=== PATIENT | female | born 1935 | race Caucasian/White ===

== ENCOUNTER 2017-10-02 09:26 | Inpatient (IN) | payer OTHER ==
[2017-10-02] MEDS ORDERED: predniSONE 20 MG TAB PO ONE (09:59)
[2017-10-02] MEDS ORDERED: ASPIRIN 81 MG CHEWABLE TAB PO ONE (09:59)
--- NOTE | 2017-10-02 10:04 | CPEKG ---
Heart Rate: 124 RR Interval: 484 P-R Interval: 164 QRSD Interval: 100 QT Interval: 324 QTC Interval: 466 P [place]: 74 QRS [place]: -43 T Wave [place]: 77 EKG Severity - ABNORMAL ECG - EKG Impression: SINUS TACHYCARDIA EKG Impression: LEFT ANTERIOR FASCICULAR BLOCK Electronically Signed By: Carmelo Alan 04-Oct-2017 08:54:15
[2017-10-02 10:07] LABS: PLATELET COUNT 228 10^3/uL (150-400)
[2017-10-02] MEDS ORDERED: IPRATROPIUM/ALBUTEROL 3 ML DEYVIAL IH ONE ×2 (10:08→12:22)
[2017-10-02] MEDS ORDERED: NS 1,000 ML IV ONE (10:35)
--- NOTE | 2017-10-02 10:39 | EDPHY ---
H & P Stated Complaint: SOB and shaking 2 days Time Seen by Provider: 10/02/17 09:35 HPI/ROS: CHIEF COMPLAINT: Short of breath, heart putting and shaky History by patient HISTORY OF PRESENT ILLNESS: 82-year-old woman with a history of hypertension and oxygen-dependent COPD presents complaining of her blood pressure running high at home and feeling shaky and some worsening shortness of breath. Patient states that a few weeks ago she quit taking her blood pressure medications for unclear reasons and then over the past few days she has been feeling unwell as if she is having a hard time breathing as well as feeling her heart pounding from time to time and feeling shaky all over. About 2 days ago she began taking her blood pressure medications again however when she took her blood pressure this morning to noticed it was high at around 190/120 despite the fact that she had been back on her medicine for 2 days. She is not currently on prednisone her aspirin. She does have a prior history of unprovoked DVT for which she took warfarin for 4 months but then office now 1st 2 years. She has had no recent leg pain or swelling. She normally uses 4 L of oxygen at home and states that she can walk around her house and get up and down stairs without too much difficulty. She denies any recent chest pain. She feels that at this moment her breathing is at baseline. She denies any fever, chills, change in cough, nausea or vomiting. 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 Head: normocephalic, atraumatic Eyes: Pupils equal and round, reactive to light, no pallor or injection. Extraocular movements intact Mouth: Mucous membranes moist. Respiratory: Increased effort and tachypnea, lungs with poor air movement throughout and scattered rhonchi. No chest wall tenderness Cardiovascular: Regular rate and rhythm, distant. no murmurs, gallops or rubs appreciated Gastrointestinal: Abdomen is soft and nontender, no masses, bowel sounds normal. Back: No CVA tenderness, no bony tenderness Neurological: Awake, alert and oriented x 3, no pronator drift, normal gait, no pronator drift Skin: Warm and dry, no rashes. Musculoskeletal: No deformities or tenderness. Full range of motion Extremities: no edema, no tenderness, DP2+ bilat Psychiatric: Patient has normal affect, there is no agitation. Constitutional: Initial Vital Signs Temperature (C) 37.3 C 10/02/17 09:34 Heart Rate 124 H 10/02/17 09:34 Respiratory Rate 32 H 10/02/17 09:34 Blood Pressure 180/76 H 10/02/17 09:34 O2 Sat (%) 95 10/02/17 09:34 O2 Delivery Mode Nasal Cannula O2 (L/minute) 4 Allergies/Adverse Reactions: No Known Allergies Allergy (Verified 10/02/17 09:43) Home Medications: Medication Instructions Recorded Amlodipine Besylate 10/02/17 Flovent Hfa 10/02/17 Ipratropium/Albuterol 10/02/17 Lisinopril/Hydrochlorothiazide 10/02/17 Proair Hfa 10/02/17 predniSONE 20 mg PO DAILY #5 tablet 10/02/17 Medical Decision Making - Diagnostics EKG Interpretation: Sinus tachycardia rate of 124 with LAFB, no ST segment elevation. Impression: Abnormal EKG Imaging Results: Imaging Impressions Chest X-Ray 10/02/17 10:00 Impression: 1. COPD/chronic bronchitis. 2. Suspect early left lower lobe pneumonia. Chest/Thorax CTA 10/02/17 10:35 Impression: 1. No pulmonary embolism or acute intrathoracic pathology. 2. Stable postoperative changes and atherosclerosis of the thoracic aorta. 3. Persistent pulmonary arterial dilatation suggestive of chronic pulmonary hypertension. 4. Diffuse centrilobular emphysema. 5. Stable left lower lobe pleural parenchymal scarring. 6. Interval increase size of subcutaneous nodule within the right posterior back. Correlate with physical examination. Consider further evaluation by ultrasound if clinically indicated. Findings and recommendations communicated to Qiana Damian MD via [facility] [place] at 1203 hour, 10/02/2017. Imaging: I viewed and interpreted images myself ED Course/Re-evaluation: 82-year-old woman with history of COPD and hypertension, prior DVT presents with palpitations, shortness of breath and tachycardia. I was concerned about COPD exacerbation, pulmonary embolism, cardiac ischemia and infection. EKG showed no evidence of acute ischemia. There is no evidence of acute arrhythmia although the patient's heart rate was variable between the 90s and 120s on the coning machine operator. Chest x-ray showed no evidence of acute pneumonia or pneumothorax. Labs were notable for no evidence of anemia or elevated white blood cell count. Patient did have an elevated creatinine at 1.7 which is up from 1.42 years ago. She 1st troponin was negative. D-dimer was elevated. BNP was slightly elevated but not in the range consistent with congestive heart failure. Patient was given an aspirin in the ED. Patient was given a DuoNeb and a dose of oral prednisone for presumed COPD exacerbation. Given the negative chest x-ray but elevated D-dimer and prior history of DVT chest CT to evaluate for pulmonary embolism was ordered. Because the patient's elevated creatinine she was given IV fluids before and after the CT dye. I discussed this with the radiologist and she will get a low-dose of dye. I discussed this with the patient so that she understands there is a small risk of worsening renal function after the CT dye but that at this point the risks outweigh the benefits of diagnosis. 12:[address] scan revealed no evidence of pulmonary embolism or pneumonia. On re-evaluation the patient was feeling slightly better no longer complaining heart pounding but still continued to complain of feeling shaky. She continued to deny chest pain or shortness of breath worse than her baseline. On re- evaluation the patient continued to have increased work of breathing, tachypnea and have scattered rhonchi and poor air movement throughout. Given the patient' s respiratory status I recommended admission for ongoing observation and treatment. Patient was very adamant that she wanted to go home and that she feels like she is at her baseline except for the shakiness. Because I could not exclude cardiac cause of her symptoms we will repeat the troponin, however the patient is quite adamant that she wants to go home if the troponin remained negative. 1:21 p.m. the patient's repeat troponin is also negative. Procalcitonin is in the low risk for infection range and the patient herself has no clear symptoms of infection. At this point I think it is reasonable to treat her with a short course of steroids, and for a COPD exacerbation. The patient initially was still adamant that she wanted to go home however her notes that he thinks her breathing is worse than usual, that she has not been able to lay down because of her breathing for the past couple nights and on re-evaluation she remains tachypneic. Her oxygen saturation is 92% on 4 L and she says it is usually 94 95% on 4 L. She continue remained tachycardic with heart rate in the 90s, therefore between myself and her we convinced her that she should be admitted for further evaluation and treatment. I discussed the patient with the hospitalist labor relations analyst, Ela Hussein, the patient be admitted to Dr. Yahir Malave. she requested Respiratory pathogen PCR which was ordered.. - Data Points Laboratory Results: Laboratory Results 10/02/17 09:45 10/02/17 09:45 10/02/17 10/02/17 10/02/17 12:45 09:45 09:45 WBC RBC Hgb Hct MCV MCH MCHC RDW Plt Count MPV Neut % (Auto) Lymph % (Auto) [place] % (Auto) Eos % (Auto) Baso % (Auto) Nucleat RBC Rel Count Absolute Neuts (auto) Absolute Lymphs (auto) Absolute Monos (auto) Absolute Eos (auto) Absolute Basos (auto) Absolute Nucleated RBC Immature Gran % Immature Gran # D-Dimer 5.01 ug/mLFEU H ug/mLFEU (0.00-0.50) Sodium Potassium Chloride Carbon Dioxide Anion Gap BUN Creatinine Estimated GFR Glucose Calcium Troponin I < 0.012 ng/mL ng/mL (0.000-0.034) NT-Pro-B Natriuret Pep Procalcitonin 0.11 ng/mL H ng/mL (0.02-0.10) 10/02/17 10/02/17 09:45 09:45 WBC 9.07 10^3/uL 10^3/uL (3.80-9.50) RBC 4.06 10^6/uL L 10^6/uL (4.18-5.33) Hgb 12.3 g/dL L g/dL (12.6-16.3) Hct 38.9 % % (38.0-47.0) MCV 95.8 fL fL (81.5-99.8) MCH 30.3 pg pg (27.9-34.1) MCHC 31.6 g/dL L g/dL (32.4-36.7) RDW 12.8 % % (11.5-15.2) Plt Count 228 10^3/uL 10^3/uL (150-400) MPV 10.2 fL fL (8.7-11.7) Neut % (Auto) 76.3 % H % (39.3-74.2) Lymph % (Auto) 12.8 % L % (15.0-45.0) [place] % (Auto) 8.8 % % (4.5-13.0) Eos % (Auto) 1.0 % % (0.6-7.6) Baso % (Auto) 0.8 % % (0.3-1.7) Nucleat RBC Rel Count 0.0 % % (0.0-0.2) Absolute Neuts (auto) 6.92 10^3/uL H 10^3/uL (1.70-6.50) Absolute Lymphs (auto) 1.16 10^3/uL 10^3/uL (1.00-3.00) Absolute Monos (auto) 0.80 10^3/uL 10^3/uL (0.30-0.80) Absolute Eos (auto) 0.09 10^3/uL 10^3/uL (0.03-0.40) Absolute Basos (auto) 0.07 10^3/uL 10^3/uL (0.02-0.10) Absolute Nucleated RBC 0.00 10^3/uL 10^3/uL (0-0.01) Immature Gran % 0.3 % % (0.0-1.1) Immature Gran # 0.03 10^3/uL 10^3/uL (0.00-0.10) D-Dimer Sodium 144 mEq/L mEq/L (135-145) Potassium 4.9 mEq/L mEq/L (3.5-5.2) Chloride 107 mEq/L mEq/L (97-110) Carbon Dioxide 26 mEq/l mEq/l (22-31) Anion Gap 11 mEq/L mEq/L (8-16) BUN 36 mg/dL H mg/dL (7-23) Creatinine 1.7 mg/dL H mg/dL (0.6-1.0) Estimated GFR 29 Glucose 127 mg/dL H mg/dL (70-100) Calcium 9.8 mg/dL mg/dL (8.5-10.4) Troponin I < 0.012 ng/mL ng/mL (0.000-0.034) NT-Pro-B Natriuret Pep 473 pg/mL H pg/mL (0-450) Procalcitonin Medications Given: Discontinued Medications Albuterol/Ipratropium (Duoneb) 3 ml IH EDNOW ONE Stop: 10/02/17 10:09 Last Admin: 10/02/17 10:35 Dose: 3 ml Albuterol/Ipratropium (Duoneb) 3 ml IH EDNOW ONE Stop: 10/02/17 12:23 Last Admin: 10/02/17 12:24 Dose: 3 ml Aspirin (Aspirin) 324 mg PO EDNOW ONE Stop: 10/02/17 10:00 Last Admin: 10/02/17 10:35 Dose: 324 mg Sodium Chloride (Ns) 1,000 mls @ 0 mls/hr IV EDNOW ONE; Wide Open PRN Reason: Protocol Stop: 10/02/17 10:36 Last Admin: 10/02/17 10:39 Dose: 1,000 mls Prednisone (Prednisone) 40 mg PO EDNOW ONE Stop: 10/02/17 10:00 Last Admin: 10/02/17 10:35 Dose: 40 mg Departure - Departure Disposition: [facility] Acute Clinical Impression: Chronic obstructive pulmonary disease with acute exacerbation, Elevated blood pressure reading, Elevated serum creatinine Condition: Fair
[2017-10-02] MEDS ORDERED: IOPAMIDOL (ISOVUE 370) 100 ML BTL IV ONE (11:21)
[2017-10-02] MEDS ORDERED: ONDANSETRON DISINTEGRATING 4 MG TAB PO PRN (16:34)
[2017-10-02] MEDS ORDERED: ONDANSETRON 4 MG/2 ML VIAL IVP PRN (16:34)
[2017-10-02] MEDS ORDERED: ACETAMINOPHEN 325 MG TAB PO PRN (16:34)
[2017-10-02] MEDS ORDERED: NS 1,000 ML IV SCH (16:45)
--- NOTE | 2017-10-02 17:26 | GHP ---
[f rep st] HISTORY AND PHYSICAL DATE OF ADMISSION: 10/02/2017 HISTORY OF PRESENT ILLNESS: The patient is an 82-year-old female with a history of oxygen-dependent COPD and hypertension, who discontinued her blood pressure medicines a few weeks ago, it sounds like she was just tired of taking pills. Blood pressure had been running in the 190/120. Over the last c ouple days she has felt shaky. She has not had chest pain. Her shortness of breath has been perhaps a bit worse. Her oral intake has been about the same. She has not had fever, chills, cough, sputum . She has a runny nose, which she attributes to allergies. She has no myalgias. No other significa nt infectious symptoms. No nausea, vomiting, diarrhea. REVIEW OF SYSTEMS: Complete 10-point review of systems conducted negative except as noted in the HPI . PAST MEDICAL HISTORY: 1. Hypertension. 2. Oxygen-dependent COPD. 3. Chronic kidney disease, uncertain baseline creatinine suspected to be about 1.4. ALLERGIES: No known drug allergies. HOME MEDICATIONS: Amlodipine, Flovent, Combivent, lisinopril/hydrochloride, and ProAir. SOCIAL HISTORY: No tobacco in about 10 years. Lives in [place]. FAMILY HISTORY: Parents . PHYSICAL EXAM: VITAL SIGNS: Temp 37, blood pressure 169/67, as high as 200/81, pulse was 94 to brie fly 128, 98 here, breathing at 26-28 times a minute, 95% on 4 L. GENERAL: No acute distress. HEENT : Sclerae anicteric. Oropharynx clear. Mucous membranes are moist. NECK: Supple, without lymphad enopathy or JVD. LUNGS: Show poor air movement, without wheeze. Exam is consistent with severe IT FIELD TECHNICIAN D. HEART: S1, S2. Borderline tachycardic. ABDOMEN: Soft, nontender, nondistended. LOWER EXTREMI TIES: No edema, calves are nontender. SKIN: Without rash. NEUROLOGIC: Nonfocal. LABORATORY: Sodium 144, potassium 4.9, chloride 107, bicarb 26, BUN 36, creatinine 1.7, previous david ues include 1.4 in 2014, and then in 2014 and before numbers of less than 1. Troponin is less than 0 .012. BNP is 473. Procalcitonin is 0.11. D-dimer is 5. White count 9, hematocrit 38.9, platelets are 228,000. EKG interpreted by me shows sinus tach at 124, with left axis deviation, right atrial e nlargement, peak T-waves, but no ST or T-wave changes. Chest x-ray interpreted by me shows suspected early left lower lobe pneumonia, COPD and chronic bronchitis. CTA of the chest shows no PE, enlarge d pulmonary arteries, diffuse emphysema, stable left lower lobe pleural parenchymal scarring. I disc ussed the case with Dr. Qiana Damian. ASSESSMENT/PLAN: 82-year-old female presents with hypertension and shakiness. 1. Shakiness. Uncertain what to make of this. Her workup was largely negative. We will treat her hypertension and follow. 2. Hypertension. I will give her 5 amlodipine now, increase the dose to 10 and continue her lisinop ril/hydrochlorothiazide in the morning. 3. Question upper respiratory infection. The patient has no symptoms attributable to it and a low p rocalcitonin. We will not follow. 4. Elevated creatinine. It is not clear if this represents a new baseline versus perhaps a bit of p rerenal kidney injury. We will give her a liter of IV fluids and follow. 5. Elevated BNP. This is consistent with pulmonary hypertension. We will follow. No further andria p. 6. Chronic obstructive pulmonary disease. The patient takes Flovent and albuterol. She takes Combi vent. I will try tiotropium in the morning for her. DISPOSITION: Observation status. /[id number]/MODL
[2017-10-02] MEDS ORDERED: amLODIPine BESYLATE 5 MG TAB PO ONE (18:00)
[2017-10-02] MEDS: ALBUTEROL 60 PUFFS/8 GM MDI IH PRN (20:58)
[2017-10-02] MEDS: FLUTICASONE HFA 110 MCG MDI IH SCH (20:59)
[2017-10-02] MEDS ORDERED: FLUTICASONE/SALMETER 250/50MCG DISKUS IH SCH (21:00)
[2017-10-03] MEDS ORDERED: ALBUTEROL 3 ML DEYVIAL IH PRN (03:44)
[2017-10-03 05:40] LABS: PLATELET COUNT 186 10^3/uL (150-400)
[2017-10-03] MEDS: LISINOPRIL 40 MG TAB PO SCH ×2 (08:39→11:06)
[2017-10-03] MEDS: TRIAMTERENE/HCTZ 37.5/25 1 EACH TAB PO SCH (08:40)
[2017-10-03] MEDS: ENOXAPARIN 30 MG/0.3 ML SYR SC SCH (08:42)
--- NOTE | 2017-10-03 08:46 | HOSPPROG ---
Hospitalist Progress Note Assessment/Plan: Patient is an 82-year-old female who has a history of oxygen-dependent COPD and hypertension. She is Dr. Blood pressure medications a few weeks ago. Today is my 1st encounter with the patient. Chart reviewed. * Uncontrolled hypertension -better with resuming her home medications and in addition amlodipine *shakiness -still quite 'shakey' this morning * hyperkalemia -recheck potassium now -hold marlena until we recheck * renal insufficiency -creat 2 years ago was elevated * elevated D-dimer -no PE noted on CTA * pulmonary artery dilation suggestive of pulmonary hypertension - followup with pulmonology in the outpatient setting * query respiratory symptoms -PCR is negative and procalcitonin is low * COPD -see Dr Doll in the OP setting . He knows she is here and came by to say "artis ". -she has very poor air exchange (likely her baseline) *anemia -had a drop in hgb/hct -could be dilutional *Plan: patient is very short of breath and quite shakey this morning. She will require another midnight stay to evaluate and make sure she is stable to go home. Subjective: Karina Henry is anxious to go home, but still feels very shakey and not quite herself. Objective: Vital Signs Temp Pulse Resp BP Pulse Ox 37 C 90 18 164/61 H 93 10/03/17 08:00 10/03/17 08:00 10/03/17 08:00 10/03/17 08:00 10/03/17 08:00 Microbiology 10/02/17 13:57 Respiratory Panel (PCR) - Final Nasal, Sinus - [place] Viral Transport No Organism Detected Laboratory Results 10/03/17 04:27 10/03/17 04:27 10/02/17 10/03/17 10/04/17 05:59 05:59 05:59 Intake Total 2540 Balance 2540 - Physical Exam Constitutional: not in pain, chronically ill appearing Eyes: PERRL Ears, Nose, Mouth, Throat: hearing normal Cardiovascular: regular rate and rhythym Respiratory: no respiratory distress, reduced air movement (bibasilar, has a hard time with exhaling) Gastrointestinal: normoactive bowel sounds Skin: warm Musculoskeletal: generalized weakness Neurologic: AAOx3 Psychiatric: interacting appropriately ICD10 Worksheet Patient Problems: Problems Problem Status Onset Chronic obstructive pulmonary disease with acute exacerbation Acute Elevated blood pressure reading Acute Elevated serum creatinine Acute DVT (deep venous thrombosis) Acute
[2017-10-03] MEDS ORDERED: LISINOPRIL/HCTZ 20/12.5MG 1 EA TAB PO SCH (09:00)
[2017-10-03] MEDS: FLUTICASONE HFA 110 MCG MDI IH SCH ×2 (09:50→21:59)
[2017-10-03] MEDS: TIOTROPIUM INHALER 18 MCG/DOSE 5 DOSE/MDI IH SCH (09:51)
[2017-10-03] MEDS: ALBUTEROL 60 PUFFS/8 GM MDI IH PRN ×3 (09:52→22:00)
[2017-10-03] MEDS: IPRATROPIUM/ALBUTEROL 3 ML DEYVIAL IH SCH ×2 (10:28→18:10)
--- NOTE | 2017-10-03 11:50 | PDMN ---
Medical Necessity Medical necessity: Patient transitioned to inpatient status per IP LITIGATION ASSOCIATE note and CMS guidelines: ongoing hypertension, improved after restarting home meds and adding amlodipine, hyperkalemia, shakiness, renal insufficiency, COPD, anemia; LOS will be > 2 midnights for ongoing dyspnea on exertion and continued monitoring of B/P with med adjustment, work with PT/OT.
--- NOTE | 2017-10-03 14:00 | ASMTCASEMG ---
Living Arrangements What is your living Answers: With Spouse arrangement? Who do you live with? Type Of Residence What kind of residence do Answers: House you live in? Discharge Plan Comments Coordination Status Comments Notes: Pt is a 82 y/o female admitted for COPD exacerbation, acute renal failure and hypertension. CM met w/ pt for dispo planning. PT is recommending home independent. OT is recommending HC. Pt does not think she will need any HC. Pt reports that her will be able to help her out. CM available for changes. Plan: Independent Date Signed: 10/03/2017 01:59 PM Electronically Signed By:ALBA Bear
[2017-10-03] MEDS ORDERED: hydrALAZINE 10 MG TAB PO PRN (16:13)
[2017-10-03] MEDS ORDERED: amLODIPine BESYLATE 5 MG TAB PO ONE (16:32)
[2017-10-04] MEDS: IPRATROPIUM/ALBUTEROL 3 ML DEYVIAL IH SCH ×4 (02:48→15:31)
[2017-10-04 05:56] LABS: PLATELET COUNT 190 10^3/uL (150-400)
[2017-10-04] MEDS: LISINOPRIL 40 MG TAB PO SCH (07:45)
[2017-10-04] MEDS: TRIAMTERENE/HCTZ 37.5/25 1 EACH TAB PO SCH (07:46)
[2017-10-04] MEDS: ENOXAPARIN 30 MG/0.3 ML SYR SC SCH (07:47)
[2017-10-04] MEDS: TIOTROPIUM INHALER 18 MCG/DOSE 5 DOSE/MDI IH SCH (09:50)
[2017-10-04] MEDS: FLUTICASONE HFA 110 MCG MDI IH SCH (09:54)
--- NOTE | 2017-10-04 10:22 | HOSPPROG ---
Hospitalist Progress Note Assessment/Plan: Patient is an 82-year-old female who has a history of oxygen-dependent COPD and hypertension. She is Dr. Blood pressure medications a few weeks ago. Today is my 1st encounter with the patient. Chart reviewed. * Uncontrolled hypertension -better with resuming her home medications and in addition increasing amlodipine dose *shakiness -better this morning -suspect her COPD is affecting this * hyperkalemia -resolved, likely an insufficient lab draw * renal insufficiency -creat 2 years ago was elevated * elevated D-dimer -no PE noted on CTA * pulmonary artery dilation suggestive of pulmonary hypertension - followup with pulmonology in the outpatient setting * query respiratory symptoms -PCR is negative and procalcitonin is low * COPD -see Dr Doll in the OP setting . He knows she is here. To f/u w him in the OP setting -she has very poor air exchange (likely her baseline) *anemia -overall stable, further f/u w her PCP *Plan: patient is very short of breath, but suspect this is her baseline, If stable after lunch will dc home Subjective: Karina Henry is feeling 'ok', wants to go home. Objective: Vital Signs Temp Pulse Resp BP Pulse Ox 36.7 C 100 18 169/85 H 95 10/04/17 07:32 10/04/17 07:32 10/04/17 07:32 10/04/17 07:32 10/04/17 07:32 Laboratory Results 10/04/17 05:47 10/04/17 05:47 10/03/17 10/04/17 10/05/17 05:59 05:59 05:59 Intake Total 100 Balance 100 - Physical Exam Constitutional: chronically ill appearing Eyes: PERRL Ears, Nose, Mouth, Throat: hearing normal Cardiovascular: regular rate and rhythym, tachycardia Respiratory: reduced air movement (mid lobes down, has poor expiratory effort) Skin: warm Musculoskeletal: generalized weakness Neurologic: AAOx3 Psychiatric: interacting appropriately ICD10 Worksheet Patient Problems: Problems Problem Status Onset DVT (deep venous thrombosis) Acute Chronic obstructive pulmonary disease with acute exacerbation Acute Elevated blood pressure reading Acute Elevated serum creatinine Acute
[2017-10-04 12:01] VITALS: RESP 18
--- NOTE | 2017-10-04 12:33 | PDIAF ---
- Diagnosis Diagnosis: uncontrolled htn, copd Code Status: Full Code - Medication Management Discharge Medications: Medications to Continue on Transfer Albuterol [Proventil Inhaler HFA (*)] 2 puffs IH Q4H PRN 10/02/17 [Last Taken ] Fluticasone Hfa 110 Mcg [Flovent 110 MCG Hfa MDI (*)] 2 puffs IH BID 10/02/17 [ Last Taken 10/02/17] Lisinopril [Zestril 40 mg (*)] 40 mg PO DAILY 10/02/17 [Last Taken 10/02/17] Triamterene/Hctz 37.5/25 [Maxzide-25 (*)] 1 tab PO DAILY 10/02/17 [Last Taken ] Tiotropium Inhaler [Spiriva Handihaler] 18 mcg IH DAILY #1 mdi 10/04/17 [Last Taken Unknown] amLODIPine BESYLATE [Amlodipine Besylate] 10 mg PO DAILY #60 tablet 10/04/17 [ Last Taken Unknown] Discharge Medications: Refer to the Discharge Home Medication list for PRN reason. - Orders Services needed: Home Care, Registered Nurse Home Care Face to Face: I certify that this patient was under my care and that I had the required [id number] encounter meeting the encounter requirements on the discharge day. My findings support the fact that the patient is homebound as defined in Home Care Face to Face Continued: CMS Chapter 7 Medicare Benefits Manual 30.1.1 , The condition of the patient is such that there exists a normal inability to leave home and consequently, leaving home would require a considerable and taxing effort. Isolation Type: None Diet Recommendation: no restrictions on diet Diet Texture: Regular Texture Diet Additional: please check blood pressure daily. Evaluate patient's ability to take her medications. May need a medication box. - Follow Up Care Current Providers and Referrals: Kristin Latham MD [Primary Care Provider] - As per Instructions Celio Doll MD [Medical Doctor] -
--- NOTE | 2017-10-04 13:08 | GDS ---
[f rep st] DISCHARGE SUMMARY DISCHARGE DIAGNOSIS: 1. Uncontrolled hypertension. 2. Shakiness. 3. Hyperkalemia. 4. Renal insufficiency. 5. Elevated D-dimer. 6. Pulmonary artery dilation suggestive of pulmonary hypertension. 7. Query respiratory symptoms. 8. Chronic obstructive pulmonary disease. 9. Anemia. HISTORY: Briefly, the patient is an 82-year-old female who has oxygen- dependent COPD and hypertension. She stopped her blood pressure medications a few weeks ago and started feeling shaky. She was admitted for further evaluation. HOSPITAL COURSE: 1. Uncontrolled hypertension. This is better with resuming her home medications. In addition, her amlodipine dose has been increased from 5 mg to 10 mg. 2. Shakiness. This is better. I suspect her COPD and inhalers are affecting her. 3. Hyperkalemia. I suspect this was due to a lab draw error. This has since resolved. 4. Renal insufficiency, overall stable. 5. Elevated D-dimer. No PE noted on CT. 6. Pulmonary artery dilation. This is suggestive of pulmonary hypertension. Reviewed this finding with Dr. Doll. She will follow up with him in the outpatient setting. 7. Query respiratory symptoms. PCR is negative. Procalcitonin is low. She was not treated with antibiotics. 8. COPD. A steroid inhaler has been added to her home medications. Will have her follow up with Dr. Doll in regard to this. 9. Anemia. Further follow up with her primary care provider. DISCHARGE CONDITION: Stable. Blood pressure is 164/76, heart rate is 99, respiratory rate is 18, O2 saturations on 4 L are 91% to 94%. Temperature is 36.8 Celsius. MEDICATIONS AT DISCHARGE: Please see the EMR. DISCHARGE INSTRUCTIONS: 1. To follow up with her primary care provider to get follow up with her anemia. 2. Her Norvasc dose has been doubled. 3. She has been started on new medication, Spiriva, to use this daily in the morning. 4. Follow up with Dr. Celio Doll. 5. Have home care nursing to check on her to make sure she is taking her blood pressure medications and to follow this. Also, to review with her how to take the Spiriva. TIME SPENT: Greater than 30 minutes discharging and coordinating the patient's care. /[id number]/MODL MTDD
[2017-10-04 15:22] VITALS: BP 159/76; PULSE 105; TEMP 98.4; O2SAT 95
[2017-10-04] MEDS: ALBUTEROL 60 PUFFS/8 GM MDI IH PRN (15:30)
--- NOTE | 2017-10-04 15:47 | ASMTLACE ---
LACE Length of stay for Answers: 1 day current admission Acuity / Level of Answers: Yes Care: Did the patient have an inpatient admission? Comorbidities - select Answers: Chronic pulmonary disease all that apply Peripheral vascular disease Other Notes: CKD, HTN, DVT # of Emergency department Answers: 1-2 visits in the last 6 months Score: 9 Date Signed: 10/04/2017 03:46 PM Electronically Signed By:Sidra Portillo RN
--- NOTE | 2017-10-04 15:56 | ASMTCMCOM ---
CM Note CM Note Notes: Colleague spoke w/pt re dc with homecare, pt declined. Will dc home, when medically stable. CM available for any changes. DC Plan: Independent Date Signed: 10/04/2017 03:55 PM Electronically Signed By:Sidra Portillo RN
== END 2017-10-04 17:03 | disposition home or self-care (01) | DRG 305 ==
LOC: CED 09:26 → CEDHOLD 13:36 → F3E 15:47 → OBSVTOIN 10-03 09:55
PROVIDERS: ADMIT Internal Medicine; ATTEND Internal Medicine
DX: I10 Essential (primary) hypertension (principal); T46.5X6A Underdosing of other antihypertensive drugs, initial encounter; G25.70 Drug induced movement disorder, unspecified; E87.5 Hyperkalemia; N28.9 Disorder of kidney and ureter, unspecified; I27.20 Pulmonary hypertension, unspecified; J44.9 Chronic obstructive pulmonary disease, unspecified; D64.9 Anemia, unspecified; Z99.81 Dependence on supplemental oxygen
CPT/HCPCS: 71046-PO; 71275-PO; 80048-PO; 83880-PO; 84484-PO; 85025-PO; 85378-PO; 97116-GP; 97161-GP; 97165-GO; 97535-GO; G0378; G8978-GP-CI; G8979-GP-CI; G8987-GO-CJ; G8988-GO-CI; J1650; J7512; Q9967

== ENCOUNTER 2017-11-20 16:31 | Emergency (ER) | payer OTHER ==
[2017-11-20] MEDS ORDERED: NS 500 ML IV ONE (16:39)
--- NOTE | 2017-11-20 17:05 | CPEKG ---
Heart Rate: 74 RR Interval: 811 P-R Interval: 168 QRSD Interval: 100 QT Interval: 412 QTC Interval: [address] City: [address] City: -[address] City: 47 EKG Severity - ABNORMAL ECG - EKG Impression: SINUS RHYTHM EKG Impression: RIGHT ATRIAL ABNORMALITY EKG Impression: LEFT AXIS DEVIATION Electronically Signed By: Chase Ford 20-Nov-2017 18:53:29
--- NOTE | 2017-11-20 17:16 | EDPHY ---
H & P Stated Complaint: PT. states sent by [facility] d/t Potassium to high, denies s/s' s Time Seen by Provider: 11/20/17 16:36 HPI/ROS: This patient reports receiving a phone call regarding her outpatient lab draw results today that revealed hyperkalemia. She is instructed to come the emergency department for evaluation and treatment. The patient denies any acute symptoms. Review of her history reveals renal insufficiency with elevated creatinine and elevated potassium in the past of 5.8. Today's outpatient blood draw is located in the computer-5.9. Her earlier episode of hyperkalemia is felt to be a spurious test result as repeat lab test revealed a normal potassium though the repeat was a day or 2 later. ROS: Constitutional: No significant fever, malaise or fevers. HEENT: No complaints Neuro: No confusion. No headache. No tremor. No focal weakness. No muscle spasms. Pulmonary: No cough shortness of breath Cardiovascular: No heart palpitations or lightheadedness. GI: No nausea vomiting or diarrhea. No abdominal pain. : No complaints new line integumentary: No rash 10 point ROS is otherwise negative. 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 Eyes: Pupils equal and round no pallor or injection. ENT, Mouth: Mucous membranes moist. Respiratory: There are no retractions, lungs are clear to auscultation. Cardiovascular: Regular rate and rhythm. Gastrointestinal: Abdomen is soft and nontender, no masses, bowel sounds normal. Neurological: GCS 15 with no focal deficits. Skin: Warm and dry, no rashes. Musculoskeletal: Neck is supple nontender. Extremities are symmetrical, full range of motion. Psychiatric: Mood and affect are normal DIFFERENTIAL DIAGNOSIS: After history and physical exam differential diagnosis was considered for her became anemia, renal insufficiency, renal failure, spurious lab results from hemo lysis, dehydration Constitutional: Initial Vital Signs Temperature (C) 37.2 C 11/20/17 16:45 Heart Rate 78 11/20/17 16:45 Respiratory Rate 24 H 11/20/17 16:45 Blood Pressure 182/86 H 11/20/17 16:45 O2 Sat (%) 95 11/20/17 16:45 O2 Delivery Mode Nasal Cannula O2 (L/minute) 4 Allergies/Adverse Reactions: No Known Allergies Allergy (Verified 11/20/17 16:43) Home Medications: Medication Instructions Recorded Albuterol [Proventil Inhaler HFA 2 puffs IH Q4H PRN 10/02/17 (*)] Fluticasone Hfa 110 Mcg [Flovent 2 puffs IH BID 10/02/17 110 MCG Hfa MDI (*)] Lisinopril [Zestril 40 mg (*)] 40 mg PO DAILY 10/02/17 Triamterene/Hctz 37.5/25 1 tab PO DAILY 10/02/17 [Maxzide-25 (*)] Tiotropium Inhaler [Spiriva 18 mcg IH DAILY #1 mdi 10/04/17 Handihaler] amLODIPine BESYLATE [Amlodipine 10 mg PO DAILY #60 tablet 10/04/17 Besylate] Furosemide [Lasix 20 MG (*)] 20 mg PO DAILY #14 tab 11/20/17 Medical Decision Making - Diagnostics EKG Interpretation: 12 lead EKG performed at 5:03 p.m. Indication evaluate for hyperkalemia Sinus rhythm at 74 Intervals: Normal throughout [place]: P of 85, QRS of -35, T of [address] segments: Normal throughout [id number] peaked anterolaterally but similar to an EKG dated 10/02/2017. ED Course/Re-evaluation: Patient was given a 500 cc bolus. She is comfortable without any acute symptoms. Review of her EKG revealed mild peak T-waves without other significant abnormalities. Review of her labs reveals a potassium 5.8-consistent with her outpatient lab draw this morning. Her BUN is elevated at 43 and her creatinine is 1.6. Urinalysis reveals no abnormalities. I spoke with Dr. Marcos, early childhood director on-call who recommends that we stop the patient's lisinopril and start her on Lasix 20 mg a day the plan to give her a single IV dose here currently. I spoke with Dr. Ribera on-call for Dr. Latham explaining the patient's presentation and outpatient plan which is to include a recheck with Dr. Latham late this week an outpatient lab draw-basic metabolic panel Discussion: Patient presents with moderate hyperkalemia without evidence of significant cardiac toxicity with underlying renal insufficiency. No evidence of UTI or proteinuria on UA. Creatinine is baseline for this patient compared to prior creatinines. - Data Points Laboratory Results: Laboratory Results 11/20/17 17:20 11/20/17 11/20/17 20:00 17:20 Sodium 136 mEq/L mEq/L (135-145) Potassium 5.8 mEq/L H mEq/L (3.5-5.2) Chloride 102 mEq/L mEq/L (97-110) Carbon Dioxide 24 mEq/l mEq/l (22-31) Anion Gap 10 mEq/L mEq/L (8-16) BUN 43 mg/dL H mg/dL (7-23) Creatinine 1.6 mg/dL H mg/dL (0.6-1.0) Estimated GFR 31 Glucose 85 mg/dL mg/dL (70-100) Calcium 9.8 mg/dL mg/dL (8.5-10.4) Urine Color PALE YELLOW Urine Appearance CLEAR Urine pH 5.5 (5.0-7.5) Ur Specific [place] 1.010 (1.002-1.030) Urine Protein NEGATIVE (NEGATIVE) Urine Ketones NEGATIVE (NEGATIVE) Urine Blood NEGATIVE (NEGATIVE) Urine Nitrate NEGATIVE (NEGATIVE) Urine Bilirubin NEGATIVE (NEGATIVE) Urine Urobilinogen 0.2 EU EU (0.2-1.0) Ur Leukocyte Esterase NEGATIVE (NEGATIVE) Urine Glucose NEGATIVE (NEGATIVE) Medications Given: Discontinued Medications Furosemide (Lasix Injection) 20 mg IVP EDNOW ONE Stop: 11/20/17 18:19 Last Admin: 11/20/17 18:27 Dose: 20 mg Sodium Chloride (Ns) 500 mls @ 0 mls/hr IV EDNOW ONE; Wide Open PRN Reason: Protocol Stop: 11/20/17 16:40 Last Admin: 11/20/17 17:28 Dose: 500 mls Departure - Departure Disposition: Home, Routine, Self-Care Clinical Impression: Hyperkalemia Hypertension Qualifiers: Hypertension type: essential hypertension Qualified Code(s): I10 - Essential ( primary) hypertension Condition: Good Instructions: Furosemide (By mouth), Hyperkalemia (ED), Hypertension (ED) Additional Instructions: Diagnosis: 1. Hyperkalemia 2. Hypertension 3. Renal insufficiency Plan: Stop your lisinopril Start Lasix 20 mg a day in the morning Continue your amlodipine Call Dr. Latham to arrange follow-up appointment this week to recheck her blood pressure. Go to the lab on Monday for a repeat potassium check and kidney function check. Follow-up with Dr. Marcos - kidney specialist next week. Referrals: Zbigniew Jett DO [Doctor of Osteopathy] - As per Instructions Kristin Latham MD [Primary Care Provider] - As per Instructions Stand Alone Forms: Outpatient Laboratory Order Prescriptions: Furosemide [Lasix 20 MG (*)] 20 mg PO DAILY #14 tab
[2017-11-20] MEDS ORDERED: FUROSEMIDE 20 MG/2 ML VIAL IVP ONE (18:18)
[2017-11-20 20:14] VITALS: BP 144/73
== END 2017-11-20 20:14 | disposition home or self-care (01) ==
LOC: CED 16:31
DX: E87.5 Hyperkalemia (principal); I10 Essential (primary) hypertension; J44.9 Chronic obstructive pulmonary disease, unspecified; E86.9 Volume depletion, unspecified; Z87.891 Personal history of nicotine dependence
CPT/HCPCS: 93005; 96361; 96374; 99284; J1940; 80048-PO; 81003-PO

== ENCOUNTER → 2017-12-27 | Outpatient (CLI) | payer OTHER | LOC: CIMAGING 10:03 | PROVIDERS: ATTEND Internal Medicine Nephrology | DX: D17.71 Benign lipomatous neoplasm of kidney (principal); N18.3 Chronic kidney disease, stage 3 (moderate); I12.9 Hypertensive chronic kidney disease with stage 1 through stage 4 chronic kidney disease, or unspecified chronic kidney disease | CPT/HCPCS: 76770-PO ==

== ENCOUNTER → 2018-01-30 | Outpatient (CLI) | payer OTHER | LOC: CIMAGING 12:39 | PROVIDERS: ATTEND Internal Medicine Nephrology | DX: R60.0 Localized edema (principal) | CPT/HCPCS: 93971-PO ==